=== PATIENT | female | born 1985 | race American Indian/Alaskan Native ===

== ENCOUNTER 2018-07-02 11:04 | Day surgery (SDC) | payer MEDICAID ==
--- NOTE | 2018-07-02 12:09 | PCM.HP ---
H&P History of Present Illness - General Date of Service: 07/02/18 Admit Problem/Dx: acute appendicitis Source of Information: Patient, Provider History Limitations: Reports: No Limitations - History of Present Illness Initial Comments - Free Text/Narative: Pt is a 32 y/o female who presents complaining of one week of lower abdominal pain. She states this is similar to pain from previous ovarian cysts, but is more severe. The pain worsened yesterday, and is now localized in the RLQ, which prompted her to seek medical attention. She reports a subjective fever earlier today. She reports having loose stools for 2 weeks. She denies any hematochezia or melena; no nausea or vomiting. She was evaluated at an outside facility with a CT scan of the abdomen and pelvis which revealed findings of acute appendicitis. She did not have any fever at the outside facility. Past Medical History Endocrine/Metabolic History: Reports: Hyperthyroidism - Past Surgical History Female Surgical History: Reports: Cystectomy Social & Family History - Family History Cardiac: Reports: Hypertension H&P Review of Systems - Review of Systems: Review Of Systems: See Below General: Reports: Fever, Weight Loss HEENT: Reports: No Symptoms Pulmonary: Reports: Shortness of Breath, Cough Cardiovascular: Reports: Palpitations Gastrointestinal: Reports: Other (loose stools). Denies: Hematochezia, Melena Genitourinary: Reports: No Symptoms Musculoskeletal: Reports: No Symptoms Skin: Reports: No Symptoms Neurological: Reports: No Symptoms Exam - Exam Exam: See Below - Exam Quality Assessment: No: Supplemental Oxygen General: Alert, Oriented HEENT: Conjunctiva Clear, EOMI Neck: Supple Lungs: Clear to Auscultation, Normal Respiratory Effort Cardiovascular: Regular Rate, Regular Rhythm GI/Abdominal Exam: Soft, No Distention, Rebound, Other (positive Rovsing's sign) Extremities: Normal Inspection Peripheral Pulses: 2+: Dorsalis Pedis (L), Dorsalis Pedis (R) Skin: Warm, Dry, Intact Neurological: Cranial Nerves Intact Neuro Extensive - Mental Status: Alert, Normal Mood/Affect *Q Meaningful Use (ADM) - VTE Risk Assess *Q Each Risk Factor Represents 1 Point: Minor Surgery Planned, Obesity ( BMI > 25 kg/m2) Total Score 1 Point Risk Factors: 2 - Problem List (1) Acute appendicitis SNOMED Code(s): 75424245 ICD Code: K35.80 - UNSPECIFIED ACUTE APPENDICITIS Status: Acute Problem List Initiated/Reviewed/Updated: Yes Orders Last 24hrs: Active Orders 24 hr Category Date Time Status BASIC METABOLIC PANEL,BMP [CHEM] Stat Lab 07/02/18 11:52 Ordered CBC WITH MANUAL DIFF [HEME] Stat Lab 07/02/18 11:51 Ordered Assessment/Plan Comment:: 32-year-old lady with acute appendicitis - Will plan for laparoscopic appendectomy - Will give 1 g ceftriaxone and 500 mg metronidazole prior to OR - Nothing by mouth - IV fluids with LR at 125mL per hour - Will check a CBC, CMP, T4 and TSH for History of hyperthyroidism as well as the presenting problem - Will check two-view chest x-ray prior to proceeding to OR for history of cough and dyspnea Elsie Bourgeois MD General Surgery
[2018-07-02] MEDS ORDERED: HYDROmorphone 0.5 MG/0.5 ML Syringe IVPUSH PRN ×2 (12:10→13:58)
[2018-07-02] MEDS ORDERED: Albuterol/Ipratropium 3.0-0.5 MG/3 ML Neb Soln NEB PRN (12:25)
[2018-07-02] MEDS ORDERED: Ondansetron 4 MG/2 ML SDV IVPUSH PRN ×2 (12:28→13:58)
[2018-07-02] MEDS ORDERED: Heparin Sodium 5,000 Units/ML Vial SUBCUT SCH (12:30)
[2018-07-02] MEDS ORDERED: Lactated Ringers 1,000 ML IV SCH (12:30)
[2018-07-02] MEDS ORDERED: HYDROmorphone 1 MG/ML Syringe ONE (12:35)
[2018-07-02] MEDS ORDERED: metroNIDAZOLE/Normal Saline 500 MG in Premix Bag 1 BAG IV ONE (12:36)
[2018-07-02] MEDS ORDERED: HYDROmorphone 1 MG/ML Syringe IVPUSH ONE (12:39)
--- NOTE | 2018-07-02 12:45 | PCM.PREANE ---
Preanesthetic Assessment - Anesthesia/Transfusion/Family Hx Anesthesia History: Prior Anesthesia Without Reaction Family History of Anesthesia Reaction: No Transfusion History: No Prior Transfusion(s) Intubation History: Unknown - Review of Systems General: No Symptoms Pulmonary: Cough Cardiovascular: No Symptoms Gastrointestinal: No Symptoms, Diarrhea Neurological: No Symptoms Other: Reports: Easy Bruising, Thyroid Problems (Hyperthyroidism-patient not taking medications and T4 elevated at this time. (no meds since January)) - Physical Assessment NPO Status Date: 07/01/18 NPO Status Time: 21:00 Pulse: 70 O2 Sat by Pulse Oximetry: 97 Respiratory Rate: 14 Blood Pressure: 123/64 Temperature: 37 C Vital Signs: Last Vital Signs Temp 37.0 C 07/02/18 12:17 Pulse 70 07/02/18 12:17 Resp 14 07/02/18 12:17 BP 123/64 07/02/18 12:17 Pulse Ox 97 07/02/18 12:17 Height: 1.7 m Weight: 90.718 kg ASA Class: 2E Mental Status: Alert & Oriented x3 Airway Class: Mallampati = 2 Dentition: Reports: Broken Tooth/Teeth, Missing Tooth/Teeth, Caries Thyro-Mental Finger Breadths: 3 Mouth Opening Finger Breadths: 3 ROM/Head Extension: Full Lungs: Clear to Auscultation, Normal Respiratory Effort Cardiovascular: Regular Rate, Regular Rhythm, No Murmurs - Lab Values: Laboratory Last Values WBC 9.73 K/mm3 (3.98-10.04) 07/02/18 12:00 RBC 5.21 M/mm3 (3.98-5.22) 07/02/18 12:00 Hgb 12.1 gm/L (11.2-15.7) 07/02/18 12:00 Hct 37.3 % (34.1-44.9) 07/02/18 12:00 MCV 71.6 fl (79.4-94.8) L 07/02/18 12:00 MCH 23.2 pg (25.6-32.2) L 07/02/18 12:00 MCHC 32.4 g/dl (32.2-35.5) 07/02/18 12:00 RDW Std Deviation 37.0 fL (36.4-46.3) 07/02/18 12:00 Plt Count 220 K/mm3 (182-369) 07/02/18 12:00 MPV 11.5 fl (9.4-12.3) 07/02/18 12:00 Neutrophils % (Manual) 62 % (40-60) H 07/02/18 12:00 Band Neutrophils % 1 % (0-10) 07/02/18 12:00 Lymphocytes % (Manual) 32 % (20-40) 07/02/18 12:00 Atypical Lymphs % 0 % 07/02/18 12:00 Monocytes % (Manual) 5 % (2-10) 07/02/18 12:00 Eosinophils % (Manual) 0 % (0.7-5.8) L 07/02/18 12:00 Basophils % (Manual) 0 (0.1-1.2) L 07/02/18 12:00 Platelet Estimate Adequate 07/02/18 12:00 Hypochromasia 1+ slight 07/02/18 12:00 Anisocytosis 1+ slight 07/02/18 12:00 Microcytosis 1+ slight 07/02/18 12:00 RBC Morph Comment Not Reportable 07/02/18 12:00 Sodium 142 mEq/L (136-145) 07/02/18 12:00 Potassium 4.0 mEq/L (3.5-5.1) 07/02/18 12:00 Chloride 110 mEq/L (98-107) H 07/02/18 12:00 Carbon Dioxide 21 mEq/L (21-32) 07/02/18 12:00 Anion Gap 15.0 (5-15) 07/02/18 12:00 BUN 16 mg/dL (7-18) 07/02/18 12:00 Creatinine 0.5 mg/dL (0.55-1.02) L 07/02/18 12:00 Est Cr Clr Drug Dosing TNP 07/02/18 12:00 Estimated GFR (MDRD) > 60 mL/min (>60) 07/02/18 12:00 BUN/Creatinine Ratio 32.0 (14-18) H 07/02/18 12:00 Glucose 98 mg/dL (74-106) 07/02/18 12:00 Calcium 8.8 mg/dL (8.5-10.1) 07/02/18 12:00 Free T4 5.60 ng/dL (0.76-1.46) H 07/02/18 12:00 Above labs reviewed and noted and within acceptable ranges to proceed with scheduled procedure. - Allergies Allergies/Adverse Reactions: Allergies Allergy/AdvReac Type Severity Reaction Status Date / Time No Known Allergies Allergy Verified 07/02/18 12:24 - Anesthesia Plan Pre-Op Medication Ordered: None Beta Sarita: Labetalol Med Last Dose Date: 07/02/18 Med Last Dose Time: 13:25 - Acknowledgements Anesthesia Type Planned: General Anesthesia Pt an Appropriate Candidate for the Planned Anesthesia: Yes Alternatives and Risks of Anesthesia Discussed w Pt/Guardian: Yes Pt/Guardian Understands and Agrees with Anesthesia Plan: Yes PreAnesthesia Questionnaire - Past Health History Medical/Surgical History: Denies Medical/Surgical History Endocrine/Metabolic History: Reports: Hyperthyroidism - Past Surgical History Female Surgical History: Reports: Cystectomy - SUBSTANCE USE Smoking Status *Q: Never Smoker Second Hand Smoke Exposure: No Recreational Drug Use History: No - HOME MEDS Home Medications: Home Meds . [No Known Home Meds] 07/02/18 [History] - CURRENT (IN HOUSE) MEDS Current Meds: Current Medications Albuterol/Ipratropium (Duoneb 3.0-0.5 Mg/3 Ml) 3 ml NEB Q4H PRN PRN Reason: Shortness Of Breath/wheezing Heparin Sodium (Porcine) (Heparin Sodium) 5,000 units SUBCUT Q8H MARTIN Hydromorphone HCl (Dilaudid) 0.5 mg IVPUSH Q2H PRN PRN Reason: Pain Lactated Ringer's (Ringers, Lactated) 1,000 mls @ 125 mls/hr IV ASDIRECTED MARTIN Metronidazole 500 mg/ Premix 100 mls @ 100 mls/hr IV ONETIME ONE Stop: 07/02/18 13:35 Ondansetron HCl (Zofran) 4 mg IVPUSH Q8H PRN PRN Reason: Nausea/Vomiting
--- NOTE | 2018-07-02 12:51 | CR ---
Chest: 2 views of the chest were obtained. Comparison: No prior chest x-rays available. Heart size and mediastinum are normal. Lungs are clear no acute parenchymal change. Bony structures are unremarkable. Pressure: 1. Nothing acute is seen on 2 view chest x-ray. Diagnostic code #1
[2018-07-02] MEDS ORDERED: cefTRIAXone 1 GM in Sodium Chloride 0.9% 100 ML IV ONE (13:05)
[2018-07-02] MEDS ORDERED: Propofol 200 MG/20 ML SDV ONE (13:08)
[2018-07-02] MEDS ORDERED: Lidocaine 1% 6 ML ONE (13:08)
[2018-07-02] MEDS ORDERED: Rocuronium 50 MG/5 ML Vial ONE ×2 (13:08→14:22)
[2018-07-02] MEDS ORDERED: Ondansetron 4 MG/2 ML SDV ONE (13:08)
[2018-07-02] MEDS ORDERED: Lactated Ringers 2,000 ML ONE (13:08)
[2018-07-02] MEDS ORDERED: Succinylcholine/Normal Saline 100 MG/5 ML Syringe ONE (13:08)
[2018-07-02] MEDS ORDERED: Labetalol 100 MG/20 ML MDV ONE (13:08)
[2018-07-02] MEDS ORDERED: Dexamethasone 4 MG/ML 5 ML MDV ONE (13:08)
[2018-07-02] MEDS ORDERED: Ketorolac 30 MG/ML SDV ONE (13:08)
[2018-07-02] MEDS ORDERED: fentaNYL 250 MCG/5 ML SDV ONE (13:09)
[2018-07-02] MEDS ORDERED: Midazolam 1 MG/ML 2 ML SDV ONE (13:09)
[2018-07-02] MEDS ORDERED: HYDROmorphone 0.5 MG/0.5 ML Syringe ONE ×2 (13:09→15:11)
[2018-07-02] MEDS ORDERED: ePHEDrine 50 MG/ML SDV IVPUSH PRN (13:58)
[2018-07-02] MEDS ORDERED: fentaNYL 100 MCG/2 ML SDV IVPUSH PRN (13:58)
[2018-07-02] MEDS ORDERED: diphenhydrAMINE 50 MG/ML SDV IVPUSH PRN (13:58)
[2018-07-02] MEDS ORDERED: Phenylephrine 1 MG in Sodium Chloride 0.9% 10 ML IV SCH (14:00)
[2018-07-02] MEDS ORDERED: fentaNYL 100 MCG/2 ML SDV ONE ×2 (14:01→14:25)
[2018-07-02] MEDS: Bupivacaine 0.5%/EPINEPHrine 1:200,000 50 ML MDV ONE ×2 (14:03→14:36)
[2018-07-02] MEDS: Lidocaine 1% with EPINEPHrine 1:100,000 20 ML MDV ONE ×2 (14:03→14:36)
[2018-07-02] MEDS ORDERED: Phenylephrine/Normal Saline 100 MCG/ML 10 ML Syringe ONE (14:21)
[2018-07-02] MEDS ORDERED: Neostigmine Methylsulfate 1 MG/ML 5 ML Syringe ONE (14:52)
[2018-07-02] MEDS ORDERED: Lactated Ringers 1,000 ML ONE (15:12)
--- NOTE | 2018-07-02 15:24 | PCM.OPNOTE ---
- General Post-Op/Procedure Note Date of Surgery/Procedure: 07/02/18 Operative Procedure(s): laparoscopic appendectomy Findings: acute appendicitis, non-ruptured Pre Op Diagnosis: acute appendicitis Post-Op Diagnosis: same Anesthesia Technique: General ET Tube Primary Surgeon: Elsie Bourgeois Anesthesia Provider: Elzbieta Owusu Pathology: appendix Fluid Replacement, Intraop: 1,400 Output, Urine Amount: 0 EBL in mLs: 50 Complications: none apparent Condition: Good
--- NOTE | 2018-07-02 15:32 | PCM.PRNOTE ---
- Free Text/Narrative Note: Operative Report Date of surgery: July 02, 2017 Preoperative diagnosis: acute appendicitis. Postoperative diagnosis: same Procedure performed: laparoscopic appendectomy Surgeon: Dr. Elsie Bourgeois Anesthesia: General Fruit Or Nut Picker: . Elzbieta Owusu CRNA Estimated blood loss 50mL IV fluids: 1400 mL crystalloid Urine output: 0 Drains and lines: . None Findings: Acute appendicitis, not ruptured Pathology: Appendix Indications for procedure: The patient is a 32-year-old female presented to an outside facility complaining of 1 week abdominal pain that had gotten worse over the last 36 hours. The patient reports having some loose stools in the recent past. She was evaluated with CT scan which revealed acute appendicitis. She is transferred to our facility where she underwent additional blood work indicating a normal white blood cell count with a left shift. She was counseled for laparoscopic appendectomy with possible conversion to open. Risks of infection, bleeding, damage to surrounding shock monserrat were discussed , written consent was obtained. Description of procedure: The patient was taken back to the operating room and placed in supine position on the operating table. SCD boots were in place and functional prior to the start of the procedure. Preoperative antibiotics were administered , 1 g IV ceftriaxone and 5 mg IV, metronidazole. She also had beta blockade due to her hyperthyroidism. The patient had successful induction of general anesthesia and was intubated without difficulty. Pt was then prepped and draped in standard surgical fashion and a timeout was performed. We began by making a 15 mm incision in the infraumbilical skin and deepened down to level of the fascia which was then grasped and incised sharply. During this process. We encountered layers of scar tissue from her previous procedures. It was difficult to identify the fascia. We attempted to also enter using the Visiport technique through the incision that we had made in the umbilicus, however, the abdominal wall fascia was redundant and did not allow penetration of the port. We continued to incise and were able to grasp posterior fascia. Again, due to the depth of the abdominal wall and redundancy of the tissue, we were not able to see clearly. The Visiport technique was again used to bring a 5mm port into the abdomen. The abdomen was insufflated to 15 mmHg. We inspected the area of injury noted that there was no injury to any of the abdominal contents. A TAP block was performed using mixed 1% lidocaine with epinephrine and 0.5% bupivacaine with epinephrine. We inserted an additional 5mm port in the left upper quadrant because her umbilical incision did not allow us to maintain the pneumoperitoneum. After we had successful visualization using a left upper quadrant port, we're able to switch the umbilical port to the 12 mm Ford port We then proceeded to place a 5 mm port under direct visualization in the suprapubic midline and an additional 5mm port in the left lower quadrant. The patient was then positioned in Trendelenburg with right side elevated and we proceeded to mobilize the appendix. The appendix was firm and inflamed. A LigaSure was used to remove and dissect free the mesoappendix. A tissue staple load was then fired across the appendix. The specimen was in place in the Endo Catch bag. We then inspected the area. There was no active bleeding at the end of this case. Due to the difficulty with entry, a 0 Vicryl suture was passed with the Endo Close device to close the umbilical The skin was then reapproximated at all port sites using a 4-0 Monocryl subcutaneous stitch and covered with Dermabond surgical glue. The patient tolerated the procedure well. She was extubated and transported to the PACU in stable condition. All sponge and needle counts were correct. I was present and scrubbed for the entirety of the procedure. Elsie Bourgeois MD General Surgery
--- NOTE | 2018-07-02 15:37 | PCM.POSTAN ---
POST ANESTHESIA ASSESSMENT - MENTAL STATUS Mental Status: Alert - VITAL SIGNS Pulse Rate: 98 SaO2: 94 (2LPM nasal cannula) Resp Rate: 15 Blood Pressure: 133/67 Temperature: 37.3 C - RESPIRATORY Respiratory Status: Respiratory Rate WNL, Airway Patent, O2 Saturation Stable, Supplemental Oxygen - CARDIOVASCULAR CV Status: Pulse Rate WNL, Blood Pressure Stable - GASTROINTESTINAL GI Status: No Symptoms - POST OP HYDRATION Hydration Status: Adequate & Stable
[2018-07-02] MEDS ORDERED: Acetaminophen/HYDROcodone 325-5 MG Tab PO PRN (16:10)
[2018-07-02] MEDS ORDERED: Ibuprofen 600 MG Tab PO PRN (16:10)
--- NOTE | 2018-07-02 18:08 | PCM48HPAN ---
Post Anesthesia Note - EVALUATION WITHIN 48HRS OF ANESTHETIC Vital Signs in Normal Range: Yes Patient Participated in Evaluation: Yes Respiratory Function Stable: Yes Airway Patent: Yes Cardiovascular Function Stable: Yes Hydration Status Stable: Yes Pain Control Satisfactory: Yes Nausea and Vomiting Control Satisfactory: Yes Mental Status Recovered: Yes
== END 2018-07-02 18:40 | disposition home or self-care (01) ==
LOC: JD.ED 11:04 → JD.SDS 12:34
PROVIDERS: ATTEND Surgery
DX: K35.30 Acute appendicitis with localized peritonitis, without perforation or gangrene (principal); E05.90 Thyrotoxicosis, unspecified without thyrotoxic crisis or storm
CPT/HCPCS: 36415; 44970; 71046; 80048; 81025; 84439; 84443; 85007; 85027; 94640; 96365; 96368; 96372; 96375; 99285; J0696; J1100; J1170; J1644; J1885; J2250; J2370; J2405; J2704; J2710; J3010; J3490; J7030; J7120; 00840; J0330; J2001; J7620-GY

== ENCOUNTER 2023-07-18 17:44 | Emergency (ER) | payer MEDICAID ==
[2023-07-18 19:43] LABS: CORONAVIRUS COVID-19 NAA NEGATIVE (NEGATIVE); INFLUENZA A NAA POSITIVE (NEGATIVE); RESPIRATORY SYNCYTIAL VIR NAA NEGATIVE (NEGATIVE)
== END 2023-07-18 20:16 | disposition home or self-care (01) ==
LOC: JD.ED 17:44
DX: J10.1 Influenza due to other identified influenza virus with other respiratory manifestations (principal); J44.9 Chronic obstructive pulmonary disease, unspecified
CPT/HCPCS: 0241U; 99283; 99282